=== PATIENT | female | born 1995 | race Caucasian/White ===

== ENCOUNTER 2018-03-22 22:20 | Emergency (ER) | payer MEDICAID ==
[~2018-03-22] VITALS: Ht 167.6 cm; Wt 120.8 kg
[~2018-03-22 22:20] MED LIST: ONDA4TAB6 PO; RIZA5TAB34 PO
[2018-03-22] MEDS ORDERED: PRED5TAB PO (22:43)
[2018-03-22] MEDS ORDERED: DOXY100C43 PO (22:43)
[2018-03-22] MEDS ORDERED: ALBU8HFA PO (22:43)
[2018-03-22] MEDS ORDERED: dexamethasone 4mg tablet PO ONE (22:45)
[2018-03-22] MEDS ORDERED: ipratropium/albuterol 3ml nebule NEB ONE (22:45)
[2018-03-22 23:59] VITALS: BP 116/69
== END 2018-03-23 00:04 | disposition home or self-care (01) ==
LOC: ER 22:21
DX: J45.901 Unspecified asthma with (acute) exacerbation (principal); J20.9 Acute bronchitis, unspecified; Z87.442 Personal history of urinary calculi; Z88.5 Allergy status to narcotic agent; Z79.899 Other long term (current) drug therapy
CPT/HCPCS: 94640; 94760; 99283; J8540

== ENCOUNTER 2020-04-11 08:32 | Outpatient (CLI) | payer OTHER ==
[~2020-04-11 08:32] MED LIST changes: +PRED5TAB PO
== END 2020-04-11 23:59 | disposition home or self-care (01) ==
LOC: RAD 08:32
PROVIDERS: ATTEND Nurse Practitioner Family
DX: S99.921A Unspecified injury of right foot, initial encounter (principal); X58.XXXA Exposure to other specified factors, initial encounter; Y93.89 Activity, other specified; Y92.89 Other specified places as the place of occurrence of the external cause; Y99.8 Other external cause status
CPT/HCPCS: 73660

== ENCOUNTER 2020-05-02 08:43 | Outpatient (CLI) | payer OTHER | END 2020-05-02 23:59 | disposition home or self-care (01) | LOC: LAB 08:43 | PROVIDERS: ATTEND Ophthalmology | DX: H05.20 Unspecified exophthalmos (principal) | CPT/HCPCS: 36415; 84439; 84443 ==

== ENCOUNTER 2020-05-08 08:49 | Outpatient (CLI) | payer BC ==
[2020-05-08] MEDS ORDERED: iohexol 300mg/ml 100ml inj. ONE (09:11)
== END 2020-05-08 23:59 | disposition home or self-care (01) ==
LOC: 64 CT 08:49
PROVIDERS: ATTEND Ophthalmology
DX: H05.20 Unspecified exophthalmos (principal)
CPT/HCPCS: 70482; Q9967